=== PATIENT | male | born 1980 | race Caucasian/White ===

== ENCOUNTER 2017-08-07 21:26 | Emergency (ER) | payer BC ==
[~2017-08-07] VITALS: Ht 180.3 cm; Wt 93.9 kg
[2017-08-07] MEDS ORDERED: LIDOCAINE HCL 2% VISC SOLN 20 ML UDC PO STA (21:31)
[2017-08-07] MEDS ORDERED: ALUMINUM/MAGNESIUM SUSP 30 ML UDC PO STA (21:31)
[2017-08-07] MEDS ORDERED: SODIUM CHLORIDE 0.9% 1000ML 1,000 ML IV STA ×2 (21:40→23:36)
[2017-08-07 21:44] VITALS: Ht 180.3 cm; Wt 93.9 kg
[2017-08-07] MEDS ORDERED: OPTIRAY 320 IV PRN (21:45)
--- NOTE | 2017-08-07 21:48 | DIAGNOSTIC IMAGING REPORT ---
SINGLE VIEW CHEST CLINICAL HISTORY: Atypical chest pain. FINDINGS: An AP, portable, upright chest radiograph is obtained. No prior studies are available for comparison at the time of dictation. The cardiomediastinal silhouette is unremarkable. The lungs and pleural spaces are clear. No pneumothorax is seen. The bony thorax is grossly intact. IMPRESSION: No active disease in the chest. Electronically signed by: Magnus Ramírez M.D. 08/07/2017 9:47 PM Dictated Date/Time: 08/07/2017 9:46 PM
[2017-08-07 21:49] VITALS: O2SAT 96
[2017-08-07 22:12] LABS: BASO % 0.2 %; BASO ABS # 0.03 K/uL (0-0.2); EOS % 0.3 %; EOS ABS # 0.04 K/uL (0-0.5); HEMATOCRIT 43.9 % (42-52); HEMOGLOBIN 15.9 g/dL (14.0-18.0); IG# 0.03 K/uL (0.00-0.02); LYMPH % 19.7 %; LYMPH ABS # 2.44 K/uL (1.2-3.4); MEAN CELL VOLUME 87.5 fL (80-100); MEAN CORPUSCULAR HEMOGLOBIN 31.7 pg (25-34); MEAN CORPUSCULAR HGB CONC 36.2 g/dl (32-36); MEAN PLATELET VOLUME 11.3 fL (7.4-10.4); MONO % 7.8 %; MONO ABS # 0.97 K/uL (0.11-0.59); NEUT % 71.8 %; NEUT ABS # 8.86 K/uL (1.4-6.5); PLATELET COUNT 168 K/uL (130-400); RED CELL DISTRIBUTION WIDTH CV 12.7 % (11.5-14.5); RED CELL DISTRIBUTION WIDTH SD 40.5 fL (36.4-46.3); WHITE BLOOD COUNT 12.37 K/uL (4.8-10.8)
[2017-08-07 23:06] LABS: BLOOD UREA NITROGEN 10 mg/dl (7-18); CARBON DIOXIDE 29 mmol/L (21-32); CREATININE 1.16 mg/dl (0.60-1.40); GLUCOSE 405 mg/dl (70-99); TOTAL PROTEIN 8.1 gm/dl (6.4-8.2)
[2017-08-07 23:20] LABS: POTASSIUM 3.8 mmol/L (3.5-5.1); SODIUM 135 mmol/L (136-145)
[2017-08-07 23:26] LABS: LIPASE 337 U/L (73-393)
[2017-08-07 23:40] LABS: ALBUMIN 3.5 gm/dl (3.4-5.0); ALKALINE PHOSPHATASE 94 U/L (45-117); ALT/SGPT 20 U/L (12-78); AST/SGOT 13 U/L (15-37)
[2017-08-07] MEDS ORDERED: METRONIDAZOLE 500MG / 100ML NSS IV STA (23:50)
[2017-08-07] MEDS ORDERED: CIPROFLOXACIN 400MG / 200ML D5W IV STA (23:50)
[2017-08-08] MEDS ORDERED: METRONIDAZOLE 250 MG TAB PO STA (02:00)
[2017-08-08] MEDS ORDERED: PANTOprazole SOD 40 MG TAB PO STA (02:00)
[2017-08-08] MEDS ORDERED: CIPROFLOXACIN 500MG HOME PACK PO ONE (02:00)
--- NOTE | 2017-08-08 02:00 | EMERGENCY ROOM VISIT NOTE ---
History First contact with patient: 21:27 Chief Complaint: HYPERGLYCEMIA Stated Complaint: HYPERGLYCEMIA, SOB History of Present Illness The patient is a 37 year old male who presents to the Emergency Room with complaints of chest pain, epigastric pain, rectal pain and lightheadedness. Patient states for the past month he has had rectal pain. He states his blood sugars run high for a prolonged period time. He takes insulin. He does not routinely see a doctor. Patient states past few days he's been having chest pain and epigastric pain. Patient denies nausea, vomiting, diarrhea, fever, chills, cold symptoms, back pain, urinary symptoms. He is tolerating by mouth fluids and food. Pain currently 6-10. Nothing makes it better or worse. It is described as aching. Review of Systems See HPI for pertinent positives & negatives. A total of 10 systems reviewed and were otherwise negative. Past Medical/Surgical History Diabetes, hyperlipidemia, hypertension, ear surgery Social History Smoking Status: Current Every Day Smoker Alcohol Use: none Drug Use: none Marital Status: in relationship Housing Status: lives with family Current/Historical Medications Unable to Obtain Active Prescriptions or Reported Meds Physical Exam Vital Signs Date Time Temp Pulse Resp B/P (MAP) Pulse Ox O2 Delivery O2 Flow Rate FiO2 08/07/17 23:44 100 138/82 93 Room Air 08/07/17 22:25 109 08/07/17 21:49 96 Room Air 08/07/17 21:49 96 Room Air 08/07/17 21:44 37.0 109 15 157/103 95 Room Air Physical Exam VITALS: Vitals are noted on the nurse's note and reviewed by myself. Vital signs stable. GENERAL: White male poorly kempt, in no acute distress, nondiaphoretic, well- developed well-nourished. SKIN: The skin was without rashes, erythema, edema, or bruising. There is no tenting of the skin. Capillary reflex less than 2 seconds. HEAD: Normocephalic atraumatic. EARS: External auditory canals clear, tympanic membranes pearly crespo without erythema or effusion bilaterally. EYES: Pupils equal round and reactive to light and accommodation. Conjunctivae without injection, sclerae without icterus. Extraocular movements intact. NOSE: Patent, turbinates without inflammation or discharge. MOUTH: Mucous membranes moist. Pharynx without erythema or exudate. Uvula midline. Airway patent. Tongue does not deviate. NECK: Supple without nuchal rigidity. No lymphadenopathy. No thyromegaly. Cervical spine is nontender. No JVD. HEART: Regular rate and rhythm without murmurs gallops or rubs. LUNGS: Clear to auscultation bilaterally without wheezes, rales or rhonchi. No dullness to percussion. No retractions or accessory muscle use. ABDOMEN: Positive bowel sounds x 4. Normal tympanic percussion. Soft, tender to palpation epigastric region, without masses or organomegaly. Welsh sign negative. No guarding or rebound tenderness. No CVA tenderness Rectal exam: Rectal area erythematous edematous and indurated without fluctuance concerning for infection. no signs of FG MUSCULOSKELETAL: No muscle atrophy, erythema, or edema noted. NEURO: Patient was alert and oriented to person place and time. Normal sensation to light and sharp touch. No focal neurological deficits. Medical Decision & Procedures Laboratory Results 08/07/17 22:00 Red Blood Count 5.02, Mean Corpuscular Volume 87.5, Mean Corpuscular Hemoglobin 31.7, Mean Corpuscular Hemoglobin Concent 36.2, Mean Platelet Volume 11.3, Neutrophils (%) (Auto) 71.8, Lymphocytes (%) (Auto) 19.7, Monocytes (%) (Auto) 7.8, Eosinophils (%) (Auto) 0.3, Basophils (%) (Auto) 0.2, Neutrophils # (Auto) 8.86, Lymphocytes # (Auto) 2.44, Monocytes # (Auto) 0.97, Eosinophils # (Auto) 0.04, Basophils # (Auto) 0.03 08/07/17 22:00 Test 08/07/17 22:00 08/07/17 23:38 08/08/17 00:28 08/08/17 00:31 White Blood Count 12.37 K/uL (4.8-10.8) Red Blood Count 5.02 M/uL (4.7-6.1) Hemoglobin 15.9 g/dL (14.0-18.0) Hematocrit 43.9 % (42-52) Mean Corpuscular Volume 87.5 fL (80-100) Mean Corpuscular Hemoglobin 31.7 pg (25-34) Mean Corpuscular Hemoglobin Concent 36.2 g/dl (32-36) Platelet Count 168 K/uL (130-400) Mean Platelet Volume 11.3 fL (7.4-10.4) Neutrophils (%) (Auto) 71.8 % Lymphocytes (%) (Auto) 19.7 % Monocytes (%) (Auto) 7.8 % Eosinophils (%) (Auto) 0.3 % Basophils (%) (Auto) 0.2 % Neutrophils # (Auto) 8.86 K/uL (1.4-6.5) Lymphocytes # (Auto) 2.44 K/uL (1.2-3.4) Monocytes # (Auto) 0.97 K/uL (0.11-0.59) Eosinophils # (Auto) 0.04 K/uL (0-0.5) Basophils # (Auto) 0.03 K/uL (0-0.2) RDW Standard Deviation 40.5 fL (36.4-46.3) RDW Coefficient of Variation 12.7 % (11.5-14.5) Immature Granulocyte % (Auto) 0.2 % Immature Granulocyte # (Auto) 0.03 K/uL (0.00-0.02) Urine Color YELLOW Urine Appearance CLEAR (CLEAR) Urine pH 6.5 (4.5-7.5) Urine Specific Lucas 1.042 (1.000-1.030) Urine Protein NEG (NEG) Urine Glucose (UA) 3+ (NEG) Urine Ketones TRACE (NEG) Urine Occult Blood NEG (NEG) Urine Nitrite NEG (NEG) Urine Bilirubin NEG (NEG) Urine Urobilinogen NEG (NEG) Urine Leukocyte Esterase NEG (NEG) Anion Gap 11.0 mmol/L (3-11) Est Creatinine Clear Calc Drug Dose 100.0 ml/min Estimated GFR () 91.4 Estimated GFR (Non- 78.9 BUN/Creatinine Ratio 8.4 (10-20) Calcium Level 9.0 mg/dl (8.5-10.1) Magnesium Level 2.0 mg/dl (1.8-2.4) Total Bilirubin 0.6 mg/dl (0.2-1) Direct Bilirubin 0.1 mg/dl (0-0.2) Aspartate Amino Transf (AST/SGOT) 13 U/L (15-37) Alanine Aminotransferase (ALT/SGPT) 20 U/L (12-78) Alkaline Phosphatase 94 U/L (45-117) Total Creatine Kinase 51 U/L (39-308) Troponin I < 0.015 ng/ml (0-0.045) Total Protein 8.1 gm/dl (6.4-8.2) Albumin 3.5 gm/dl (3.4-5.0) Lipase 337 U/L (73-393) Beta-Hydroxybutyric Acid 2.43 mg/dL (0.2-2.81) Venous Blood pH 7.38 (7.36-7.41) Venous Blood Partial Pressure CO2 42 mmHg (38.0-50.0) Venous Blood Partial Pressure O2 38 mmHg Venous Blood HCO3 25 mmol/L Venous Blood Oxygen Saturation 73.0 % Venous Blood Base Excess -0.6 mEq/L Bedside Glucose 304 mg/dl (70-99) Bedside Troponin I < 0.030 ng/ml (0-0.045) Medications Administered Medications (Trade) Dose Ordered Sig/Casey Route Start Time Stop Time Status Last Admin Dose Admin Lidocaine HCl (Viscous Lidocaine 2% Soln) 10 ml NOW STAT PO 08/07/17 21:31 08/07/17 21:34 DC 08/07/17 22:13 10 ML Al Hydroxide/Mg Hydroxide (Maalox Susp) 30 ml NOW STAT PO 08/07/17 21:31 08/07/17 21:34 DC 08/07/17 22:13 30 ML Sodium Chloride 1,000 ml @ 999 mls/hr Q1H1M STAT IV 08/07/17 21:40 08/07/17 22:40 DC 08/07/17 22:13 999 MLS/HR Sodium Chloride 1,000 ml @ 999 mls/hr Q1H1M STAT IV 08/07/17 23:36 08/08/17 00:36 DC 08/07/17 23:40 999 MLS/HR Ciprofloxacin/ Dextrose (Cipro / D5W) 400 mg NOW STAT IV 08/07/17 23:50 08/07/17 23:51 DC 08/08/17 00:48 400 MG Metronidazole (Flagyl / Nss) 500 mg NOW STAT IV 08/07/17 23:50 08/07/17 23:51 DC 08/08/17 00:39 500 MG ED Course Prior records/ancillary studies reviewed and summarized above. Nursing notes reviewed. Additional history obtained from EMS. The patient's history was concerning for rectal pain, abdominal pain, chest pain , leg numbness, dizziness, high blood sugar. Differential diagnosis: Etiologies such as metabolic, infection, hypo/hyperglycemia, electrolyte abnormalities, cardiac sources, intracerebral event, toxicologic, neurologic, as well as others were entertained. Physical examination: As above. ER treatment provided: IV Lock IV fluids On reassessment the patient felt better. Diagnostics interpretation by me: ECG: Normal sinus, normal intervals, no acute ST-T wave changes. Impression sinus tachycardia interpreted by myself The labs revealed hyperglycemia without DKA. Repeat blood sugar is improved. Normal pH. No anion gap. Negative troponin 2 Imaging studies: CT ABDOMEN & PELVIS: Inflammatory changes in the right perianal/buttock region. No drainable collection. Unremarkable appendix. Fatty liver. Radiologist: Amish Salomon M.D. SINGLE VIEW CHEST CLINICAL HISTORY: Atypical chest pain. FINDINGS: An AP, portable, upright chest radiograph is obtained. No prior studies are available for comparison at the time of dictation. The cardiomediastinal silhouette is unremarkable. The lungs and pleural spaces are clear. No pneumothorax is seen. The bony thorax is grossly intact. IMPRESSION: No active disease in the chest. Electronically signed by: Magnus Ramírez M.D. CT ABDOMEN & PELVIS: Inflammatory changes in the right perianal/buttock region. No drainable collection. Unremarkable appendix. Fatty liver. Radiologist: Amish Salomon M.D. Exam and history seem consistent with hyperglycemia without DKA, chest pain less likely cardiac in etiology mostly from reflux and rectal infection. Patient felt comfortable going home. Patient had no drainable abscess on CT imaging. His chest pain resolved after the GI cocktail. He had 2 sets of negative troponins. Normal EKG. His symptoms of an ongoing for a few days now. He is afebrile and nontoxic appearing. He was advised take medications as directed, rest, monitor his blood sugars, stay well-hydrated and to follow- up family care in a day or 2 for reevaluation or here in the ER sooner for chest pain, fevers, difficulty breathing, worsening signs or symptoms or as needed. Patient states he sees the [facility] out front of the hospital. By the evaluation outlined above emergent etiologies such as cardiac sources, intracerebral event, toxologic, neurologic, as well as others were deemed relatively unlikely. The pt informed about the findings as listed above. All questions were answered and pleased with the treatment. Return instructions were outlined and the patient was discharged in stable condition. Outpatient prescription management: Protonix, Cipro, Flagyl Referral: The patient was referred back to primary care physician for follow-up in 2 to 3 days for a recheck of the current condition. case reviewed with my Attending Medical Decision as above Medication Reconcilliation Current Medication List: was personally reviewed by me Blood Pressure Screening Patient's blood pressure: Normal blood pressure Impression Primary Impression: Perianal cellulitis Additional Impressions: Precordial chest pain GERD (gastroesophageal reflux disease) Epigastric abdominal pain Hyperglycemia due to type 2 diabetes mellitus Departure Information Dispostion Home / Self-Care Condition GOOD Prescriptions Unable to Obtain Active Prescriptions or Reported Meds Patient Instructions My [facility] Additional Instructions Rectal infection: DO NOT drive, drink alcohol, operate machinery, or perform dangerous activities today. You were given medications in the ER that can affect your ability to safely function or operate a vehicle. Ciprofloxacin(Cipro) 500mg: Take one pill twice daily for 14 days for your infection. All antibiotics can cause diarrhea. If this occurs and you feel worse or it does not resolve in 1-2 days follow up with your doctor or return to the Emergency Department as this could be signs of serious underlying problems. If you experience any pain in your tendons or any tendon injury return to the ER for re-evaluation. Any medication can cause an allergic reaction, stop the pills immediately and return to the ER for rash, hives, breathing difficulties, or swelling. Metronidazole(Flagyl) 500mg: Take one pill 3 times daily for 14 days for your bowel infection. DO NOT drink alcohol or take alcohol containing products with this medication. Any medication can cause an allergic reaction, stop the pills immediately and return to the ER for rash, hives, breathing difficulties, or swelling. Ibuprofen(Motrin, Advil) may be used for fever or pain. Use 600mg every six hours as needed. Take with food. Avoid using more than 2400mg in a 24 hour period. Do not use 2400mg per day for more than three consecutive days without physician direction. Prolonged inappropriate use can lead to stomach upset or ulcers. (AND/OR) Acetaminophen(Tylenol) may be used for fever or pain. Use 1000mg every six hours as needed. Avoid using more than 3000mg in a 24 hour period. Rest and drink plenty of fluids as tolerated. Slow sips of water or sports drinks are recommended instead of large amounts all at once. Continue current medications. Once your stomach is settled start with a clear liquid diet (jello, soup broth, etc.) and then advance as tolerated. You should avoid full, heavy meals for about 24 hrs from the time your symptoms resolved. Return to the ER immediately for worsening or persistent abdominal pain, vomiting, fevers, chest pains, difficulty breathing, black or bloody stools, worsening of your condition, or as needed. Follow up with your primary physician in 2-3 days for a recheck of your current condition. Abdominal/chest pain: Protonix 40 m tablet daily for next 2 weeks. Take this on an empty stomach. Try Maalox or Zantac for breakthrough symptoms for reflux. Avoid large meals. Avoid acidic foods. Rest and drink plenty of fluids as tolerated. Continue current medications. Avoid strenuous activities and anything that worsens your pain. Resume normal activities once your symptoms resolve. Return to the ER immediately for worsening or persistent chest pain, abdominal pain, black or blood in your stools, vomiting, fevers, chest pains, difficulty breathing, worsening of your condition, or as needed. Follow up with your primary physician in 2-3 days for a recheck of your current condition. Problem Qualifiers
[2017-08-08] MEDS ORDERED: METR-163 PO (02:02)
[2017-08-08] MEDS ORDERED: CIPR-255 PO (02:02)
[2017-08-08] MEDS ORDERED: PANT40TA PO (02:02)
[2017-08-08 02:31] VITALS: BP 127/75; PULSE 102; TEMP 37; O2SAT 95
--- NOTE | 2017-08-08 07:04 | DIAGNOSTIC IMAGING REPORT ---
CT OF THE ABDOMEN AND PELVIS WITH CONTRAST CLINICAL HISTORY: Epigastric and rectal pain. Possible abscess. COMPARISON STUDY: None. TECHNIQUE: Following IV administration of 115 mL of Optiray-320, axial images of the abdomen and pelvis were obtained from the lung bases to the proximal femurs. Images were reviewed in the axial, sagittal, and coronal planes. IV contrast was administered without complication. A dose lowering technique was utilized adhering to the principles of ALARA. CT DOSE: 574.29 mGy.cm FINDINGS: Fatty infiltration of the liver is noted. The spleen, adrenal glands, kidneys and pancreas are normal. There is no biliary or pancreatic ductal dilatation. There is no hydronephrosis. Both nephrograms are symmetric. The caliber and wall thickness of small and large bowel are normal. The appendix is normal. There is no abdominal or pelvic lymphadenopathy. There is moderate infiltration within the medial right buttock which extends toward the right perianal region. There is no soft tissue gas. There is no rim-enhancing fluid collection. There is a 2.1 cm hypodense focus which suggests phlegmon within the medial right buttock. Visualized skeletal structures are unremarkable. No pneumatosis, free air or portal venous gas is present. IMPRESSION: Moderate inflammation within the medial right buttock consistent with an infectious process with cellulitis. 2.1 cm hypodense focus suggests phlegmon. No well-defined rim-enhancing fluid collection to suggest abscess at this time. Electronically signed by: Mahamed Segundo M.D. 08/08/2017 7:03 AM Dictated Date/Time: 08/08/2017 6:54 AM
== END 2017-08-08 02:32 | disposition home or self-care (01) ==
LOC: C.EDA 21:30
DX: K61.0 Anal abscess (principal); R07.2 Precordial pain; K21.9 Gastro-esophageal reflux disease without esophagitis; R10.13 Epigastric pain; E11.65 Type 2 diabetes mellitus with hyperglycemia; I10 Essential (primary) hypertension; F17.200 Nicotine dependence, unspecified, uncomplicated; Z98.890 Other specified postprocedural states

== ENCOUNTER 2021-04-25 15:54 | Observation (INO) ==
[2021-04-25] MEDS ORDERED: SODIUM CHLORIDE 0.9% 1000ML 1,000 ML IV ONE (16:20)
[2021-04-25] MEDS ORDERED: ASPIRIN CHEW 324 MG PO STA (16:20)
[2021-04-25 16:36] LABS: Basophils # (auto) 0.02 K/uL (0-0.2); Basophils % (auto) 0.3 %; Eosinophils # (auto) 0.08 K/uL (0-0.5); Eosinophils % (auto) 1.2 %; Hemoglobin 14.9 g/dL (14.0-18.0); Immature Granulocytes # (auto) 0.01 K/uL (0.00-0.02); Immature Granulocytes % (auto) 0.1 %; Lymphocytes # (auto) 1.84 K/uL (1.2-3.4); Lymphocytes % (auto) 27.4 %; Mean Corpuscular Hemoglobin 31.2 pg (25-34); Mean Corpuscular Hgb Conc 33.9 g/dL (32-36); Mean Corpuscular Volume 92.2 fL (80-100); Mean Platelet Volume 10.9 fL (7.4-10.4); Monocytes # (auto) 0.39 K/uL (0.11-0.59); Monocytes % (auto) 5.8 %; Neutrophils # (auto) 4.37 K/uL (1.4-6.5); Neutrophils % (auto) 65.2 %; Platelet Count 218 K/uL (130-400); RDW Coefficient of Variation 12.9 % (11.5-14.5); Red Blood Count 4.77 M/uL (4.7-6.1); White Blood Count 6.71 K/uL (4.8-10.8)
[2021-04-25 16:56] LABS: BUN Creatinine Ratio 8.5 (10-20); Blood Urea Nitrogen 9 mg/dl (7-18); Calcium 8.6 mg/dl (8.5-10.1); Carbon Dioxide 26 mmol/L (21-32); Chloride 107 mmol/L (98-107); Creatinine Clr Calc Pharmacy 108.7 ml/min; Est GFR (African American) 106.4 ml/min; Est GFR (Non-African American) 91.8 ml/min; Glucose 320 mg/dl (70-99); Lipase 228 U/L (73-393); Sodium 139 mmol/L (136-145)
[2021-04-25 16:59] LABS: Troponin I < 0.015 ng/ml (0-0.045)
--- NOTE | 2021-04-25 17:02 | XRay Report ---
TWO VIEW CHEST CLINICAL HISTORY: Dyspnea. Atypical chest pain. FINDINGS: PA and lateral chest radiographs are compared to study dated 04/24/2021. The cardiomediastin al silhouette is unremarkable. The lungs and pleural spaces are clear. There is no pneumothorax. The bony thorax appears intact. IMPRESSION: No active disease in the chest. ACT 112: Negative or not required by law. Electronically signed by: Magnus Ramírez M.D. 04/25/2021 5:01 PM
[2021-04-25 17:13] LABS: Partial Thromboplastin Time 26.2 Seconds (21.0-31.0); Prothrombin Time 10.4 Seconds (9.0-12.0)
[2021-04-25] MEDS ORDERED: OPTIRAY 320 125ml IV ONE (17:42)
--- NOTE | 2021-04-25 18:35 | CT Scan Report ---
CT ANGIOGRAM OF THE CHEST; CT SCAN OF THE ABDOMEN AND PELVIS WITH IV CONTRAST CLINICAL HISTORY: Atypical chest pain. Epigastric abdominal pain. Dyspnea. Back pain. COMPARISON STUDY: Chest x-ray dated 04/25/2021. Abdominal CT dated 08/07/2017. TECHNIQUE: Following the IV administration of 120 of Optiray 320, CT angiogram of the chest is perfor med from the upper abdomen to the thoracic inlet utilizing the pulmonary embolus protocol. Images are reviewed in the axial, sagittal, coronal planes. 3-D MIPS images are created and assessed. Subsequen tly, CT scan of the abdomen and pelvis was performed from the lung bases to the proximal femora. Imag es are reviewed in the axial, sagittal, and coronal planes. IV contrast was administered without comp lication. A dose lowering technique was utilized adhering to the principles of ALARA. CT DOSE: 1305.53 mGy.cm FINDINGS: CHEST: Thyroid: Imaged portions of the thyroid gland are normal in size and attenuation. Thoracic aorta: The thoracic aorta is normal in caliber and demonstrates standard 3-vessel arch anato my. No dissection is seen. Pulmonary vasculature: The pulmonary trunk is normal in caliber. There are no filling defects identif ied in the main, lobar, or segmental pulmonary arteries to indicate pulmonary embolus. Heart: The heart is normal in size and without pericardial effusion. Lungs and pleural spaces: There is no airspace consolidation or pleural effusion. Dependent atelectas is is noted at the lung bases. The trachea and central airways are clear. Mild diffuse peribronchial thickening is observed. Mediastinum: There is no mediastinal lymphadenopathy. Sophie: Clear. Axillae: There is no axillary lymphadenopathy. Bony thorax: No lytic or blastic lesions are identified. ABDOMEN AND PELVIS: Liver: The contrast-enhanced liver is normal in size, contour, and attenuation. Fatty infiltration is seen adjacent to falciform ligament. There is no intrahepatic or ductal dilatation. The hepatic vein s and portal veins are patent. Gallbladder: Unremarkable. Spleen: Normal in size and attenuation. There are calcified splenic granulomas. Pancreas: Unremarkable. Adrenal glands: Unremarkable. Kidneys: The contrast enhanced kidneys are normal in size and without hydronephrosis. The kidneys enh ance symmetrically. Abdominal vasculature: The abdominal aorta is normal in course and caliber. Bowel: There is no bowel obstruction. The appendix is well-visualized and normal. Peritoneum: There is no intraperitoneal free air or abdominal ascites. There is a small fat-containin g umbilical hernia. Lymphadenopathy: None. Pelvic viscera: The bladder, prostate, and seminal vesicles are normal as imaged. There is a small fa t-containing right inguinal hernia. Skeletal structures: No lytic or blastic lesions are seen. IMPRESSION: 1. There is no evidence of pulmonary embolus in the main, lobar, or segmental pulmonary arteries. 2. There is no airspace consolidation or pleural effusion. 3. Mild diffuse peribronchial thickening suggests bronchitis/reactive airway disease. Clinical correl ation will be required. 4. There are no acute infectious or inflammatory findings in the abdomen or pelvis. 5. Additional findings as above. ACT 112: Negative or not required by law. Electronically signed by: Magnus Ramírez M.D. 04/25/2021 6:34 PM
[2021-04-25] MEDS ORDERED: lisinopril 2.5 MG TAB PO ONE (19:20)
[2021-04-25] MEDS ORDERED: NICOTINE POLACRILEX 2 MG GUM MT PRN (20:05)
--- NOTE | 2021-04-25 20:19 | History & Physical Report ---
Date of Service April 25, 2021 Assessment & Plan (1) Chest pain: Plan: Atypical Possibly musculoskeletal given reproducibility Rule out ACS given risk factors for ischemic heart disease hypertension, slight elevated hyperlipidemia, on statin Rx DM2 insulin requiring, suboptimal control as of recent hemoglobin A1c of 10.29 December 2020 anxiety/mood disorder, at baseline medication noncompliance as per records ongoing tobacco abuse OBS PCU Aspirin for CAD prevention until ACS ruled out. Follow troponin Stress echo in a.m. if a.m. troponin within normal limits Titrate home BP meds Basal insulin adjusted for n.p.o. status after midnight, ISS BG goal 1 10-1 40, update hemoglobin A1c Update lipid panel Nicotine patch DVT prophylaxis per Lovenox subcu Full code Text document was generated using [employer] voice recognition software. It may contain grammatical or spelling errors. Kindly contact undersigned for clarification of any documentation item in question. History of Present Illness Chief Complaint: Chest pain Primary Care Provider: Jayla Pedersen DO History obtained from patient and records. Medical history significant for hypertension, hyperlipidemia, DM2 insulin requiring, anxiety/mood disorder, medication noncompliance as per records, ongoing tobacco abuse. Patient has had intermittent substernal pain since age of 16. Not related to exertion or food intake. Spontaneous resolution after a few minutes. Very sporadic, years without actual chest pain. 2 days ago, patient noted recurrence substernal pain going to both hands and feet with some shortness of breath. No actual abdominal pain. Patient evaluated at the ER. Serum lipase at 07/31/1961. Symptoms attributed to stress as per ER provider note. Patient subsequently discharged. Recurrent symptoms this afternoon, 05/09. Patient given aspirin at the ER. Patient currently comfortable. Medical History as above Surgical History : Tympanostomy tube placement Family History : Alcoholism, heart disease, DM, stroke Personal/Social history : 1 pack daily, occasional EtOH intake, former Allergies Allergy/AdvReac Type Severity Reaction Status Date / Time No Known Allergies Allergy Unverified 04/24/21 02:31 Home Medications Medication Instructions Recorded Confirmed Type aspirin 81 mg tablet,delayed 81 mg PO DAILY 04/25/21 04/25/21 History release (Aspirin Low Dose) atorvastatin 80 mg tablet 80 mg PO DAILY 04/25/21 04/25/21 History bupropion HCl 300 mg 24 hr tablet, 300 mg PO DAILY 04/25/21 04/25/21 History extended release canagliflozin 300 mg tablet 300 mg PO DAILY 04/25/21 04/25/21 History (Invokana) insulin glargine 100 unit/mL 50 unit SUBCUT DAILY 04/25/21 04/25/21 History subcutaneous solution (Lantus U-100 Insulin) lisinopril 2.5 mg tablet 2.5 mg PO DAILY 04/25/21 04/25/21 History semaglutide 1 mg/dose (2 mg/1.5 1 mg SUBCUT WK 04/25/21 04/25/21 History mL) subcutaneous pen injector (Ozempic) Past Med/Surg History Medical History (Updated 04/25/21 @ 21:44 by Jeremiah Bahena) Diabetes HLD (hyperlipidemia) HTN (hypertension) No pertinent family history Surgical History (Updated 04/24/21 @ 00:30 by Vishal Gonzalez PA-C) No significant past surgical history Social History Smoking Status: Current every day smoker Tobacco Type: Cigarettes Feels Safe at Home: Yes Review of Systems Review of Systems: As per HPI, all 10 systems reviewed, all other ROS negative Physical Exam Physical Exam: GENERAL: Comfortable, pleasant, looks older than stated age no respiratory distress SKIN: Normal color, warm HEENT: Halley palpebral conjunctivae, no ptosis, dry buccal mucosa NECK : Supple, no tenderness CHEST : CTA, left chest wall tenderness HEART : RRR, no obvious murmurs ABDOMEN: Some distention, nontender EXTREMITIES : No LE swelling/tenderness, no other conspicuous deformities noted NEUROLOGIC : Coherent, no facial asymmetry, no other gross focality Results & Data Results & Data ([facility]) Vital Signs (Past 12 Hours) Vital Signs Temp Pulse Resp BP BP Pulse Ox 04/25/21 18:30 76 24 154/79 H 97 04/25/21 18:15 81 19 155/93 H 97 04/25/21 18:00 79 26 H 98 04/25/21 17:50 79 16 99 04/25/21 17:30 98 04/25/21 17:20 98 04/25/21 17:10 98 04/25/21 17:00 133/64 98 04/25/21 16:50 97 04/25/21 16:48 97 04/25/21 16:30 139/84 04/25/21 16:21 86 133/83 97 04/25/21 16:18 83 20 133/83 98 04/25/21 16:08 37 C 88 18 141/90 H 98 Laboratory Results Laboratory Results WBC 6.71 K/uL (4.8-10.8) 04/25/21 16:24 RBC 4.77 M/uL (4.7-6.1) 04/25/21 16:24 Hgb 14.9 g/dL (14.0-18.0) 04/25/21 16:24 Hct 44.0 % (42-52) 04/25/21 16:24 MCV 92.2 fL (80-100) 04/25/21 16:24 MCH 31.2 pg (25-34) 04/25/21 16:24 MCHC 33.9 g/dL (32-36) 04/25/21 16:24 RDW Std Deviation 44.0 fL (36.4-46.3) 04/25/21 16:24 RDW Coeff of Yesica 12.9 % (11.5-14.5) 04/25/21 16:24 Plt Count 218 K/uL (130-400) 04/25/21 16:24 MPV 10.9 fL (7.4-10.4) H 04/25/21 16:24 Immature Gran % (Auto) 0.1 % 04/25/21 16:24 Neut % (Auto) 65.2 % 04/25/21 16:24 Lymph % (Auto) 27.4 % 04/25/21 16:24 [place] % (Auto) 5.8 % 04/25/21 16:24 Eos % (Auto) 1.2 % 04/25/21 16:24 Baso % (Auto) 0.3 % 04/25/21 16:24 Neut # (Auto) 4.37 K/uL (1.4-6.5) 04/25/21 16:24 Lymph # (Auto) 1.84 K/uL (1.2-3.4) 04/25/21 16:24 [place] # (Auto) 0.39 K/uL (0.11-0.59) 04/25/21 16:24 Eos # (Auto) 0.08 K/uL (0-0.5) 04/25/21 16:24 Baso # (Auto) 0.02 K/uL (0-0.2) 04/25/21 16:24 Immature Gran # (Auto) 0.01 K/uL (0.00-0.02) 04/25/21 16:24 PT 10.4 Seconds (9.0-12.0) 04/25/21 16:24 INR 1.0 (0.9-1.1) 04/25/21 16:24 APTT 26.2 Seconds (21.0-31.0) 04/25/21 16:24 PTT Ratio 1.0 04/25/21 16:24 Sodium 139 mmol/L (136-145) 04/25/21 16:24 Potassium 4.0 mmol/L (3.5-5.1) 04/25/21 16:24 Chloride 107 mmol/L (98-107) 04/25/21 16:24 Carbon Dioxide 26 mmol/L (21-32) 04/25/21 16:24 Anion Gap 6.0 (3-11) 04/25/21 16:24 BUN 9 mg/dl (7-18) 04/25/21 16:24 Creatinine 1.00 mg/dl (0.6-1.4) 04/25/21 16:24 Est Cr Clr Drug Dosing 108.7 ml/min 04/25/21 16:24 Est GFR ( Amer) 106.4 ml/min 04/25/21 16:24 Est GFR (Non-Af Amer) 91.8 ml/min 04/25/21 16:24 BUN/Creatinine Ratio 8.5 (10-20) L 04/25/21 16:24 Glucose 320 mg/dl (70-99) H* 04/25/21 16:24 Calcium 8.6 mg/dl (8.5-10.1) 04/25/21 16:24 Troponin I < 0.015 ng/ml (0-0.045) 04/25/21 16:24 Lipase 228 U/L (73-393) 04/25/21 16:24 Beta-Hydroxybutyric Acd mg/dl (0.2-2.81) 04/25/21 16:24 Specimen Hemolysis 04/25/21 16:24 COVID-19 Eval Order Covid19 at [facility] 04/25/21 19:52 Impressions Chest X-Ray 04/25/21 16:20 TWO VIEW CHEST CLINICAL HISTORY: Dyspnea. Atypical chest pain. FINDINGS: PA and lateral chest radiographs are compared to study dated 04/24/2021. The cardiomediastinal silhouette is unremarkable. The lungs and pleural spaces are clear. There is no pneumothorax. The bony thorax appears intact. IMPRESSION: No active disease in the chest. ACT 112: Negative or not required by law. Electronically signed by: Magnus Ramírez M.D. 04/25/2021 5:01 PM Abdomen/Pelvis CT 04/25/21 17:01 CT ANGIOGRAM OF THE CHEST; CT SCAN OF THE ABDOMEN AND PELVIS WITH IV CONTRAST CLINICAL HISTORY: Atypical chest pain. Epigastric abdominal pain. Dyspnea. Back pain. COMPARISON STUDY: Chest x-ray dated 04/25/2021. Abdominal CT dated 08/07/2017. TECHNIQUE: Following the IV administration of 120 of Optiray 320, CT angiogram of the chest is performed from the upper abdomen to the thoracic inlet utilizing the pulmonary embolus protocol. Images are reviewed in the axial, sagittal, coronal planes. 3-D MIPS images are created and assessed. Subsequently, CT scan of the abdomen and pelvis was performed from the lung bases to the proximal femora. Images are reviewed in the axial, sagittal, and coronal planes. IV contrast was administered without complication. A dose lowering technique was utilized adhering to the principles of ALARA. CT DOSE: 1305.53 mGy.cm FINDINGS: CHEST: Thyroid: Imaged portions of the thyroid gland are normal in size and attenuation. Thoracic aorta: The thoracic aorta is normal in caliber and demonstrates standard 3-vessel arch anatomy. No dissection is seen. Pulmonary vasculature: The pulmonary trunk is normal in caliber. There are no filling defects identified in the main, lobar, or segmental pulmonary arteries to indicate pulmonary embolus. Heart: The heart is normal in size and without pericardial effusion. Lungs and pleural spaces: There is no airspace consolidation or pleural effusion. Dependent atelectasis is noted at the lung bases. The trachea and central airways are clear. Mild diffuse peribronchial thickening is observed. Mediastinum: There is no mediastinal lymphadenopathy. Sophie: Clear. Axillae: There is no axillary lymphadenopathy. Bony thorax: No lytic or blastic lesions are identified. ABDOMEN AND PELVIS: Liver: The contrast-enhanced liver is normal in size, contour, and attenuation. Fatty infiltration is seen adjacent to falciform ligament. There is no intrahepatic or ductal dilatation. The hepatic veins and portal veins are patent. Gallbladder: Unremarkable. Spleen: Normal in size and attenuation. There are calcified splenic granulomas. Pancreas: Unremarkable. Adrenal glands: Unremarkable. Kidneys: The contrast enhanced kidneys are normal in size and without hydronephrosis. The kidneys enhance symmetrically. Abdominal vasculature: The abdominal aorta is normal in course and caliber. Bowel: There is no bowel obstruction. The appendix is well-visualized and normal. Peritoneum: There is no intraperitoneal free air or abdominal ascites. There is a small fat-containing umbilical hernia. Lymphadenopathy: None. Pelvic viscera: The bladder, prostate, and seminal vesicles are normal as imaged. There is a small fat-containing right inguinal hernia. Skeletal structures: No lytic or blastic lesions are seen. IMPRESSION: 1. There is no evidence of pulmonary embolus in the main, lobar, or segmental pulmonary arteries. 2. There is no airspace consolidation or pleural effusion. 3. Mild diffuse peribronchial thickening suggests bronchitis/reactive airway disease. Clinical correlation will be required. 4. There are no acute infectious or inflammatory findings in the abdomen or pe lvis. 5. Additional findings as above. ACT 112: Negative or not required by law. Electronically signed by: Magnus Ramírez M.D. 04/25/2021 6:34 PM Chest CTA 04/25/21 17:01 CT ANGIOGRAM OF THE CHEST; CT SCAN OF THE ABDOMEN AND PELVIS WITH IV CONTRAST CLINICAL HISTORY: Atypical chest pain. Epigastric abdominal pain. Dyspnea. Back pain. COMPARISON STUDY: Chest x-ray dated 04/25/2021. Abdominal CT dated 08/07/2017. TECHNIQUE: Following the IV administration of 120 of Optiray 320, CT angiogram of the chest is performed from the upper abdomen to the thoracic inlet utilizing the pulmonary embolus protocol. Images are reviewed in the axial, sagittal, coronal planes. 3-D MIPS images are created and assessed. Subsequently, CT scan of the abdomen and pelvis was performed from the lung bases to the proximal femora. Images are reviewed in the axial, sagittal, and coronal planes. IV contrast was administered without complication. A dose lowering technique was utilized adhering to the principles of ALARA. CT DOSE: 1305.53 mGy.cm FINDINGS: CHEST: Thyroid: Imaged portions of the thyroid gland are normal in size and attenuation. Thoracic aorta: The thoracic aorta is normal in caliber and demonstrates standard 3-vessel arch anatomy. No dissection is seen. Pulmonary vasculature: The pulmonary trunk is normal in caliber. There are no filling defects identified in the main, lobar, or segmental pulmonary arteries to indicate pulmonary embolus. Heart: The heart is normal in size and without pericardial effusion. Lungs and pleural spaces: There is no airspace consolidation or pleural effusion. Dependent atelectasis is noted at the lung bases. The trachea and central airways are clear. Mild diffuse peribronchial thickening is observed. Mediastinum: There is no mediastinal lymphadenopathy. Sophie: Clear. Axillae: There is no axillary lymphadenopathy. Bony thorax: No lytic or blastic lesions are identified. ABDOMEN AND PELVIS: Liver: The contrast-enhanced liver is normal in size, contour, and attenuation. Fatty infiltration is seen adjacent to falciform ligament. There is no intrahepatic or ductal dilatation. The hepatic veins and portal veins are patent. Gallbladder: Unremarkable. Spleen: Normal in size and attenuation. There are calcified splenic granulomas. Pancreas: Unremarkable. Adrenal glands: Unremarkable. Kidneys: The contrast enhanced kidneys are normal in size and without hydronephrosis. The kidneys enhance symmetrically. Abdominal vasculature: The abdominal aorta is normal in course and caliber. Bowel: There is no bowel obstruction. The appendix is well-visualized and normal. Peritoneum: There is no intraperitoneal free air or abdominal ascites. There is a small fat-containing umbilical hernia. Lymphadenopathy: None. Pelvic viscera: The bladder, prostate, and seminal vesicles are normal as imaged. There is a small fat-containing right inguinal hernia. Skeletal structures: No lytic or blastic lesions are seen. IMPRESSION: 1. There is no evidence of pulmonary embolus in the main, lobar, or segmental pulmonary arteries. 2. There is no airspace consolidation or pleural effusion. 3. Mild diffuse peribronchial thickening suggests bronchitis/reactive airway disease. Clinical correlation will be required. 4. There are no acute infectious or inflammatory findings in the abdomen or pelvis. 5. Additional findings as above. ACT 112: Negative or not required by law. Electronically signed by: Magnus Ramírez M.D. 04/25/2021 6:34 PM Diagnostic Findings EKG as per my interpretation: Rate 85, NSR, normal axis, T wave flattening inferior and septal leads (1) Chest pain Chest pain type: unspecified Qualified Code(s): R07.9 - Chest pain, unspecified
[2021-04-25] MEDS ORDERED: LANTUS PER UNIT CHARGE SQ STA (20:22)
[2021-04-25] MEDS ORDERED: NICOTINE 21 MG/24 HR TDSY TD STA (20:23)
[2021-04-25 21:04] LABS: Magnesium 2.3 mg/dl (1.8-2.4); Troponin I < 0.015 ng/ml (0-0.045)
--- NOTE | 2021-04-25 21:35 | Emergency Department Note ---
History of Present Illness General Chief Complaint: Chest Pain Stated Complaint: CHEST TIGHTNESS Time Seen by Provider: 04/25/21 16:12 History of Present Illness Provider Complaint: chest pain Onset (ago): day(s) 3 Duration: intermittent Onset: during rest Pain Location: substernal and epigastric Pain Radiation: RUE and LUE Severity: moderate Maximum Pain Intensity: 10 Current Pain Intensity: 8 Quality: + aching Relieved By: + nothing Exacerbated By: + nothing Context: no recent illness, no recent surgery, no recent immobilization, no recent travel, no trauma/injury, no new medications or no history of DVT/PE Associated symptoms: + dyspnea and + cough; no nausea, no vomiting, no d iaphoresis, no sense of impending doom, no syncope, no palpitations, no fever or no leg swelling Patient states he was seen in the emergency department 2 days ago and told his lipase level was high. Patient reports he is vaccinated against COVID-19. Home Medications Medication Instructions Recorded Confirmed Type aspirin 81 mg tablet,delayed 81 mg PO DAILY 04/25/21 04/25/21 History release (Aspirin Low Dose) atorvastatin 80 mg tablet 80 mg PO DAILY 04/25/21 04/25/21 History bupropion HCl 300 mg 24 hr tablet, 300 mg PO DAILY 04/25/21 04/25/21 History extended release canagliflozin 300 mg tablet 300 mg PO DAILY 04/25/21 04/25/21 History (Invokana) insulin glargine 100 unit/mL 50 unit SUBCUT DAILY 04/25/21 04/25/21 History subcutaneous solution (Lantus U-100 Insulin) lisinopril 2.5 mg tablet 2.5 mg PO DAILY 04/25/21 04/25/21 History semaglutide 1 mg/dose (2 mg/1.5 1 mg SUBCUT WK 04/25/21 04/25/21 History mL) subcutaneous pen injector (Ozempic) Allergies Allergy/AdvReac Type Severity Reaction Status Date / Time No Known Allergies Allergy Unverified 04/24/21 02:31 Past Med/Surg History Medical History (Updated 04/25/21 @ 21:44 by Jeremiah Bahena) Diabetes HLD (hyperlipidemia) HTN (hypertension) No pertinent family history Surgical History (Updated 04/24/21 @ 00:30 by Vishal Gonzalez PA-C) No significant past surgical history Social History Smoking Status: Current every day smoker Tobacco Type: Cigarettes Feels Safe at Home: Yes Physical Exam Vital Signs Vital Signs - 24 hr 04/25/21 16:08 04/25/21 16:18 04/25/21 16:21 Temperature 37 C Temperature Source Oral Pulse Rate 88 83 86 Pulse Rate from SpO2 Sensor 87 Respiratory Rate 18 20 Respiratory Effort / Characteristics Non-Labored Respiratory Depth Normal Normal Blood Pressure 141/90 H 133/83 Blood Pressure [Right Arm] 133/83 Blood Pressure Mean 107 99 Blood Pressure Mean [Right Arm] 99 Blood Pressure Position Sitting Pulse Oximetry 98 98 97 Oxygen Delivery Method Room Air Room Air Room Air Sepsis Recent Fever Within 48 Hours No Sepsis New/Unexplained Change in Mental Status N/A Sepsis Action Taken by Nursing No Action Required 04/25/21 16:30 04/25/21 16:48 04/25/21 16:50 Temperature Temperature Source Pulse Rate Pulse Rate from SpO2 Sensor 89 84 Respiratory Rate Respiratory Effort / Characteristics Respiratory Depth Blood Pressure 139/84 Blood Pressure [Right Arm] Blood Pressure Mean 102 Blood Pressure Mean [Right Arm] Blood Pressure Position Pulse Oximetry 97 97 Oxygen Delivery Method Room Air Room Air Room Air Sepsis Recent Fever Within 48 Hours Sepsis New/Unexplained Change in Mental Status Sepsis Action Taken by Nursing 04/25/21 17:00 04/25/21 17:10 04/25/21 17:20 Temperature Temperature Source Pulse Rate Pulse Rate from SpO2 Sensor 88 84 91 H Respiratory Rate Respiratory Effort / Characteristics Respiratory Depth Blood Pressure 133/64 Blood Pressure [Right Arm] Blood Pressure Mean 87 Blood Pressure Mean [Right Arm] Blood Pressure Position Pulse Oximetry 98 98 98 Oxygen Delivery Method Room Air Room Air Room Air Sepsis Recent Fever Within 48 Hours Sepsis New/Unexplained Change in Mental Status Sepsis Action Taken by Nursing 04/25/21 17:30 04/25/21 17:50 04/25/21 18:00 Temperature Temperature Source Pulse Rate 79 79 Pulse Rate from SpO2 Sensor 81 79 79 Respiratory Rate 16 26 H Respiratory Effort / Characteristics Respiratory Depth Blood Pressure Blood Pressure [Right Arm] Blood Pressure Mean Blood Pressure Mean [Right Arm] Blood Pressure Position Pulse Oximetry 98 99 98 Oxygen Delivery Method Room Air Room Air Room Air Sepsis Recent Fever Within 48 Hours Sepsis New/Unexplained Change in Mental Status Sepsis Action Taken by Nursing 04/25/21 18:15 04/25/21 18:30 Temperature Temperature Source Pulse Rate 81 76 Pulse Rate from SpO2 Sensor 81 76 Respiratory Rate 19 24 Respiratory Effort / Characteristics Respiratory Depth Blood Pressure 155/93 H 154/79 H Blood Pressure [Right Arm] Blood Pressure Mean 113 104 Blood Pressure Mean [Right Arm] Blood Pressure Position Pulse Oximetry 97 97 Oxygen Delivery Method Room Air Room Air Sepsis Recent Fever Within 48 Hours Sepsis New/Unexplained Change in Mental Status Sepsis Action Taken by Nursing Physical Exam GENERAL: He is oriented to person, place, and time. He appears well-developed and well-nourished. He does not appear distressed. HENT: Exam performed. - Head: Normocephalic and atraumatic. - Right Ear: External ear normal. No mastoid tenderness. - Left Ear: External ear normal. No mastoid tenderness. - Mouth/Throat: The oropharynx is clear and moist. No trismus in the jaw. No dental abscesses or uvula swelling. No oropharyngeal exudate or tonsillar abscesses. EYES: Conjunctivae and EOM are normal. Pupils are equal, round, and reactive to light. Right eye exhibits no discharge. Left eye exhibits no discharge. No scleral icterus. NECK: Normal range of motion. Neck supple. No JVD present. No spinous process tenderness present. No carotid bruit present. No rigidity. No tracheal deviation and normal range of motion present. No Brudzinski's sign and no Kernig's sign noted. CV: Normal rate, regular rhythm, normal heart sounds and intact distal pulses. There is no peripheral edema. Palpable radial pulses bue. PULM/CHEST: Effort normal and breath sounds normal. No respiratory distress. No stridor. He has no wheezes. He has no rales. - Chest Wall: He exhibits no tenderness. ABD: The abdomen is soft. Diffuse pain on palpation of the abdomen. MUSC/SKEL: Normal range of motion. There is no peripheral edema, tenderness or deformity. LYMPH: No cervical adenopathy. NEURO: He is alert and oriented to person, place, and time. He has normal strength. No cranial nerve deficit or sensory deficit. Coordination and gait normal. GCS eye subscore is 4. GCS verbal subscore is 5. GCS motor subscore is 6. Cerebellar tests wnl. SKIN: Skin is warm and dry. He is not diaphoretic. PSYCH: He has a normal mood and affect. Behavior is normal. Judgment and thought content normal. Course Course 1612: The patient was evaluated in room C9. A complete history and physical exam was performed Cardiac monitoring: An order was placed for continuous cardiac monitoring. The monitor shows a rate of 80 with sinus rhythm EMR reviewed. Patient was seen in the emergency department 2 days ago. At that time he had a lipase of 1160. Patient according to the documentation at that time had no abdominal pain the patient was discharged. 193: Vital signs stable. Labs and imaging within normal limits. Patient has a moderate heart score. Patient will be admitted to the [facility]ist team for chest pain rule out ACS Dr. Amato notified. Administered Medications Discontinued Medications Aspirin (Aspirin Chew 324 Mg) 324 mg PO NOW STA Stop: 04/25/21 16:21 Last Admin: 04/25/21 16:26 Dose: 324 mg Documented by: [id number] Sodium Chloride (Nss 1000ml) 1,000 mls @ 999 mls/hr IV .Q1H1M ONE Stop: 04/25/21 17:20 Last Infusion: 04/25/21 17:27 Dose: 0 mls/hr Documented by: [id number] Admin: 04/25/21 16:26 Dose: 999 mls/hr Documented by: [id number] Insulin Glargine (Lantus Per Unit Charge) 20 units SQ NOW STA Stop: 04/25/21 20:23 Last Admin: 04/25/21 20:39 Dose: 20 units Documented by: [id number] Cosigned by: [id number] Ioversol (Optiray 320 125ml) 120 ml IV ONCE ONE Stop: 04/25/21 17:43 Last Admin: 04/25/21 17:42 Dose: 120 ml Documented by: [id number] Lisinopril (Lisinopril 2.5 Mg Tab) 2.5 mg PO ONE ONE Stop: 04/25/21 19:21 Last Admin: 04/25/21 20:40 Dose: 2.5 mg Documented by: [id number] Nicotine (Nicotine 21 Mg/24 Hr Tdsy) 21 mg TD NOW STA Stop: 04/25/21 20:24 Last Admin: 04/25/21 20:40 Dose: 21 mg Documented by: [id number] Medical Decision Making Laboratory Data Result diagrams: 04/25/21 16:24 04/25/21 16:24 Labs: Lab Results 04/25/21 04/25/21 04/25/21 Range/Units 16:24 16:24 16:24 WBC 6.71 (4.8-10.8) K/uL RBC 4.77 (4.7-6.1) M/uL Hgb 14.9 (14.0-18.0) g/dL Hct 44.0 (42-52) % MCV 92.2 (80-100) fL MCH 31.2 (25-34) pg MCHC 33.9 (32-36) g/dL RDW Std Deviation 44.0 (36.4-46.3) fL RDW Coeff of Yesica 12.9 (11.5-14.5) % Plt Count 218 (130-400) K/uL MPV 10.9 H (7.4-10.4) fL Immature Gran % (Auto) 0.1 % Neut % (Auto) 65.2 % Lymph % (Auto) 27.4 % Barnwell % (Auto) 5.8 % Eos % (Auto) 1.2 % Baso % (Auto) 0.3 % Neut # (Auto) 4.37 (1.4-6.5) K/uL Lymph # (Auto) 1.84 (1.2-3.4) K/uL Barnwell # (Auto) 0.39 (0.11-0.59) K/uL Eos # (Auto) 0.08 (0-0.5) K/uL Baso # (Auto) 0.02 (0-0.2) K/uL Immature Gran # (Auto) 0.01 (0.00-0.02) K/uL PT 10.4 (9.0-12.0) Seconds INR 1.0 (0.9-1.1) APTT 26.2 (21.0-31.0) Seconds PTT Ratio 1.0 Sodium 139 (136-145) mmol/L Potassium 4.0 (3.5-5.1) mmol/L Chloride 107 (98-107) mmol/L Carbon Dioxide 26 (21-32) mmol/L Anion Gap 6.0 (3-11) BUN 9 (7-18) mg/dl Creatinine 1.00 (0.6-1.4) mg/dl Est Cr Clr Drug Dosing 108.7 ml/min Est GFR ( Amer) 106.4 ml/min Est GFR (Non-Af Amer) 91.8 ml/min BUN/Creatinine Ratio 8.5 L (10-20) Glucose 320 H* (70-99) mg/dl Calcium 8.6 (8.5-10.1) mg/dl Magnesium (1.8-2.4) mg/dl Troponin I < 0.015 (0-0.045) ng/ml Lipase 228 (73-393) U/L Beta-Hydroxybutyric Acd (0.2-2.81) mg/dl Specimen Hemolysis COVID-19 Eval Order SARS-CoV-2 (PCR) (Negative) 04/25/21 04/25/21 04/25/21 Range/Units 19:52 19:52 20:24 WBC (4.8-10.8) K/uL RBC (4.7-6.1) M/uL Hgb (14.0-18.0) g/dL Hct (42-52) % MCV (80-100) fL MCH (25-34) pg MCHC (32-36) g/dL RDW Std Deviation (36.4-46.3) fL RDW Coeff of Yesica (11.5-14.5) % Plt Count (130-400) K/uL MPV (7.4-10.4) fL Immature Gran % (Auto) % Neut % (Auto) % Lymph % (Auto) % Barnwell % (Auto) % Eos % (Auto) % Baso % (Auto) % Neut # (Auto) (1.4-6.5) K/uL Lymph # (Auto) (1.2-3.4) K/uL Barnwell # (Auto) (0.11-0.59) K/uL Eos # (Auto) (0-0.5) K/uL Baso # (Auto) (0-0.2) K/uL Immature Gran # (Auto) (0.00-0.02) K/uL PT (9.0-12.0) Seconds INR (0.9-1.1) APTT (21.0-31.0) Seconds PTT Ratio Sodium (136-145) mmol/L Potassium (3.5-5.1) mmol/L Chloride (98-107) mmol/L Carbon Dioxide (21-32) mmol/L Anion Gap (3-11) BUN (7-18) mg/dl Creatinine (0.6-1.4) mg/dl Est Cr Clr Drug Dosing ml/min Est GFR ( Amer) ml/min Est GFR (Non-Af Amer) ml/min BUN/Creatinine Ratio (10-20) Glucose (70-99) mg/dl Calcium (8.5-10.1) mg/dl Magnesium 2.3 (1.8-2.4) mg/dl Troponin I < 0.015 (0-0.045) ng/ml Lipase (73-393) U/L Beta-Hydroxybutyric Acd (0.2-2.81) mg/dl Specimen Hemolysis COVID-19 Eval Order Covid19 at [facility] SARS-CoV-2 (PCR) NEGATIVE (Negative) Imaging Data Chest x-ray: Radiologist's impression: TWO VIEW CHEST CLINICAL HISTORY: Dyspnea. Atypical chest pain. FINDINGS: PA and lateral chest radiographs are compared to study dated 04/24/20. The cardiomediastinal silhouette is unremarkable. The lungs and pleural spaces are clear. There is no pneumothorax. The bony thorax appears intact. IMPRESSION: No active disease in the chest. ACT 112: Negative or not required by law. Electronically signed by: Magnus Ramírez M.D. 04/25/2021 5:01 PM Dictated: 04/25/211699Transcribed: 04/25/211699 CT scan - chest: Radiologist's impression: CT ANGIOGRAM OF THE CHEST; CT SCAN OF THE ABDOMEN AND PELVIS WITH IV CONTRAST CLINICAL HISTORY: Atypical chest pain. Epigastric abdominal pain. Dyspnea. Back pain. COMPARISON STUDY: Chest x-ray dated 04/25/2021. Abdominal CT dated 08/07/2017. TECHNIQUE: Following the IV administration of 120 of Optiray 320, CT angiogram of the chest is performed from the upper abdomen to the thoracic inlet utilizing the pulmonary embolus protocol. Images are reviewed in the axial, sagittal, coronal planes. 3-D MIPS images are created and assessed. Subsequently, CT scan of the abdomen and pelvis was performed from the lung bases to the proximal femora. Images are reviewed in the axial, sagittal, and coronal planes. IV contrast was administered without complication. A dose lowering technique was utilized adhering to the principles of ALARA. CT DOSE: 1305.53 mGy.cm FINDINGS: CHEST: Thyroid: Imaged portions of the thyroid gland are normal in size and attenuation. Thoracic aorta: The thoracic aorta is normal in caliber and demonstrates standard 3-vessel arch anatomy. No dissection is seen. Pulmonary vasculature: The pulmonary trunk is normal in caliber. There are no filling defects identified in the main, lobar, or segmental pulmonary arteries to indicate pulmonary embolus. Heart: The heart is normal in size and without pericardial effusion. Lungs and pleural spaces: There is no airspace consolidation or pleural effu windy. Dependent atelectasis is noted at the lung bases. The trachea and central airways are clear. Mild diffuse peribronchial thickening is observed. Mediastinum: There is no mediastinal lymphadenopathy. Sophie: Clear. Axillae: There is no axillary lymphadenopathy. Bony thorax: No lytic or blastic lesions are identified. ABDOMEN AND PELVIS: Liver: The contrast-enhanced liver is normal in size, contour, and attenuation. Fatty infiltration is seen adjacent to falciform ligament. There is no i ntrahepatic or ductal dilatation. The hepatic veins and portal veins are patent. Gallbladder: Unremarkable. Spleen: Normal in size and attenuation. There are calcified splenic granulomas. Pancreas: Unremarkable. Adrenal glands: Unremarkable. Kidneys: The contrast enhanced kidneys are normal in size and without hydronephrosis. The kidneys enhance symmetrically. Abdominal vasculature: The abdominal aorta is normal in course and caliber. Bowel: There is no bowel obstruction. The appendix is well-visualized and normal. Peritoneum: There is no intraperitoneal free air or abdominal ascites. There is a small fat-containing umbilical hernia. Lymphadenopathy: None. Pelvic viscera: The bladder, prostate, and seminal vesicles are normal as imaged. There is a small fat-containing right inguinal hernia. Skeletal structures: No lytic or blastic lesions are seen. IMPRESSION: 1. There is no evidence of pulmonary embolus in the main, lobar, or segmental pulmonary arteries. 2. There is no airspace consolidation or pleural effusion. 3. Mild diffuse peribronchial thickening suggests bronchitis/reactive airway disease. Clinical correlation will be required. 4. There are no acute infectious or inflammatory findings in the abdomen or pelvis. 5. Additional findings as above. ACT 112: Negative or not required by law. Electronically signed by: Magnus Ramírez M.D. 04/25/2021 6:34 PM Dictated: 04/25/211819Transcribed: 04/25/211819 ECG Data Indication: chest pain Rate (beats per minute): 84 Rhythm: normal sinus Findings: no ST depression, no ST elevation or no prolonged QT MDM Narrative Vital signs stable. Labs and imaging within normal limits. Patient has a moderate heart score. Patient will be admitted to the [facility] hospitalist team for chest pain rule out ACS Dr. Amato notified. Impression & Plan Chest pain Discharge Plan Visit Data Chief Complaint: Chest Pain Stated Complaint: CHEST TIGHTNESS Discharge Problem: Chest pain Patient Disposition: Being Evaluated by Hospitalist Forms Stand Alone Forms: [facility] Prescriptions Prescriptions: No Action atorvastatin 80 mg tablet 80 mg PO DAILY RF: 0 lisinopril 2.5 mg tablet 2.5 mg PO DAILY RF: 0 bupropion HCl 300 mg tablet extended release 24 hr 300 mg PO DAILY RF: 0 Invokana 300 mg tablet 300 mg PO DAILY RF: 0 Ozempic 1 mg/dose (2 mg/1.5 mL) pen injector 1 mg SUBCUT WK RF: 0 aspirin [Aspirin Low Dose] 81 mg Tablet,Delayed Release (Dr/Ec) 81 mg PO DAILY RF: 0 Lantus U-100 Insulin 100 unit/mL Solution 50 unit SUBCUT DAILY RF: 0 Referrals Referrals: Jayla Pedersen DO [Primary Care Provider] -
[2021-04-25] MEDS ORDERED: GLUCOSE 10 TABS/TUBE PO PRN (22:14)
[2021-04-25] MEDS ORDERED: GLUCOSE 40% GEL 15 GM TUBE PO PRN (22:14)
[2021-04-25] MEDS ORDERED: CARBOHYDRATES FOR HYPOGLYCEMIA PO PRN (22:14)
[2021-04-25] MEDS ORDERED: GLUCAGON FOR INJ 1 MG VIAL SQ PRN (22:14)
[2021-04-25] MEDS ORDERED: LORazepam 0.5 MG/1 ML VIAL IV PRN (22:14)
[2021-04-25] MEDS ORDERED: DEXTROSE 50% 50 ML SYRINGE IV PRN (22:14)
[2021-04-25] MEDS ORDERED: PROMETHAZINE HCL 12.5 MG in SODIUM CHLORIDE 0.9% 50 ML IV PRN (22:14)
[2021-04-25] MEDS: oxyCODONE HCL IR 5 MG TAB (IMMEDIATE RELEASE) PO PRN (23:17)
[2021-04-25] MEDS: INSULIN ASPART 100 UNITS/ML 3 ML PEN SC SCH (23:18)
[2021-04-25 23:21] LABS: Lyme Ab IgG w/WB Rflx Negative (Negative); Lyme Ab IgM w/WB Rflx Negative (Negative)
[2021-04-26] MEDS ORDERED: SODIUM CHLORIDE 0.9% 1000ML 1,000 ML IV SCH
[2021-04-26] MEDS: MoRPHine SULFATE 4 MG/ML 1 ML CARP\\VIAL IV PRN ×4 (03:02→22:26)
[2021-04-26 05:50] LABS: Basophils # (auto) 0.03 K/uL (0-0.2); Basophils % (auto) 0.5 %; Eosinophils # (auto) 0.15 K/uL (0-0.5); Eosinophils % (auto) 2.3 %; Hematocrit (blood only) 39.3 % (42-52); Hemoglobin 13.1 g/dL (14.0-18.0); Lymphocytes # (auto) 2.43 K/uL (1.2-3.4); Mean Corpuscular Hemoglobin 30.1 pg (25-34); Mean Corpuscular Hgb Conc 33.3 g/dL (32-36); Mean Corpuscular Volume 90.3 fL (80-100); Mean Platelet Volume 10.4 fL (7.4-10.4); Monocytes # (auto) 0.51 K/uL (0.11-0.59); Neutrophils # (auto) 3.27 K/uL (1.4-6.5); Neutrophils % (auto) 51.2 %; Platelet Count 177 K/uL (130-400); RDW Coefficient of Variation 13.1 % (11.5-14.5); RDW Standard Deviation 43.1 fL (36.4-46.3); Red Blood Count 4.35 M/uL (4.7-6.1); White Blood Count 6.39 K/uL (4.8-10.8)
[2021-04-26 06:03] LABS: Partial Thromboplastin Time 26.7 Seconds (21.0-31.0)
[2021-04-26] MEDS: INSULIN ASPART 100 UNITS/ML 3 ML PEN SC SCH ×4 (06:17→20:20)
[2021-04-26 06:35] LABS: BUN Creatinine Ratio 9.5 (10-20); Creatinine Clr Calc Pharmacy 135.7 ml/min; Est GFR (African American) 126.8 ml/min; Est GFR (Non-African American) 109.4 ml/min; Potassium 3.3 mmol/L (3.5-5.1)
[2021-04-26] MEDS: ACETAMINOPHEN 325 MG TAB PO PRN ×2 (07:34→13:45)
[2021-04-26] MEDS: oxyCODONE HCL IR 5 MG TAB (IMMEDIATE RELEASE) PO PRN ×3 (07:59→20:20)
[2021-04-26 08:08] LABS: Estimated Average Glucose 263 mg/dl; Hemoglobin A1C 10.8 % (4.5-5.6)
[2021-04-26] MEDS: NICOTINE 21 MG/24 HR TDSY TD SCH (08:53)
[2021-04-26] MEDS: lisinopril 5 MG TAB PO SCH (08:53)
[2021-04-26] MEDS: buPROPion XL 300 MG TABCR PO SCH (08:53)
[2021-04-26] MEDS: ASPIRIN 81 MG ECTAB PO SCH (08:53)
[2021-04-26] MEDS: ATORVASTATIN 40 MG TAB PO SCH (08:53)
[2021-04-26] MEDS: ENOXAPARIN INJ 40 MG/0.4 ML SYR SQ SCH (08:54)
[2021-04-26] MEDS ORDERED: INSULIN GLARGINE SOLOSTAR 100 UNITS/ML 3 ML PEN SC SCH ×3 (09:00→21:00)
[2021-04-26] MEDS ORDERED: ASPIRIN 81 MG ECTAB PO SCH (09:00)
[2021-04-26] MEDS ORDERED: POTASSIUM CHLORIDE CRTAB 20 MEQ TABCR PO STA (09:27)
[2021-04-26] MEDS ORDERED: Nursing to Pharmacy Communication SCH (12:15)
--- NOTE | 2021-04-26 15:46 | Electrocardiogram Report ---
Test Reason : Blood Pressure : / mmHG Vent. Rate : 084 BPM Atrial Rate : 084 BPM P-R Int : 136 ms QRS Dur : 088 ms QT Int : 356 ms P-R-T Axes : 051 -02 041 degrees QTc Int : 420 ms Normal sinus rhythm Normal ECG When compared with ECG of 23-APR-2021 23:35, No significant change was found Confirmed by Sanya Barros ([id number]) on 04/26/2021 3:45:47 PM Referred By: Confirmed By:Sanya Barros
--- NOTE | 2021-04-26 16:50 | Hospitalist Progress Note ---
Date of Service April 26, 2021 Assessment & Plan (1) Chest pain: Plan: Atypical; ACS ruled out Possibly musculoskeletal given reproducibility Rule out ACS given risk factors for ischemic heart disease hypertension, slight elevated hyperlipidemia, on statin Rx DM2 insulin requiring, suboptimal control as of recent hemoglobin A1c of 10.29 December 2020 anxiety/mood disorder, at baseline medication noncompliance as per records ongoing tobacco abuse Appreciate cardioloyg input. Stress test is negative. Grady MSK componenst. Patient refused to go home today and reported that he will come back if discharged. CTA negative. Chest exam was bening. Continue with increased lisinopril 10 mg daily. Continue with insulin. Update lipid panel Nicotine patch DVT prophylaxis per Lovenox subcu Full code Text document was generated using [employer] voice recognition software. It may contain grammatical or spelling errors. Kindly contact undersigned for clarification of any documentation item in question. Admission and Anticipated Discharge Date Admission Date: April 25, 2021 Subjective Paitent was seen post-stress test. Reports he contineus to have chest pain that is 10/10. Reports he feels as if someone is sitting on his chest. Denies any SOB but does have minimal non-productive cough. Denies worening of chest pain with movement or with breathing. Denies any recent trauma. Denies any palpiations or dizziness. Review of Systems Review of Systems: All systems reviewed & are unremarkable except as noted in HPI & below Physical Exam Physical Exam: General: A&Ox3 HENT: NCAT, MMM, EOMI Eyes: PERRLA Neck: Supple, normal range of motion CVS: normal rate and rhythm Resp: b/l decrease breath sounds Abdomen: Soft, ND/NT Extremities: No c/c/e Neuro: face symmetric, no focal deficit apprecaited Skin: warm and dry, no rashes/lesions/errythema MSK: normal ROM, no joint swelling/erythema Results & Data Results & Data ([facility]) Vital Signs (Past 12 Hours) Vital Signs Temp Pulse Pulse Resp BP BP Pulse Ox 04/26/21 15:54 36.6 C 77 18 125/74 97 04/26/21 13:14 36.5 C 73 17 113/65 136/81 97 04/26/21 08:00 71 04/26/21 07:37 36.5 C 73 17 136/81 97 (1) Chest pain Chest pain type: unspecified Qualified Code(s): R07.9 - Chest pain, unspecified
[2021-04-27] MEDS: oxyCODONE HCL IR 5 MG TAB (IMMEDIATE RELEASE) PO PRN ×2 (05:50→11:05)
--- NOTE | 2021-04-27 06:25 | Electrocardiogram Report ---
Test Reason : Blood Pressure : / mmHG Vent. Rate : 074 BPM Atrial Rate : 074 BPM P-R Int : 148 ms QRS Dur : 098 ms QT Int : 390 ms P-R-T Axes : 063 009 -02 degrees QTc Int : 432 ms Normal sinus rhythm Normal ECG When compared with ECG of 25-APR-2021 16:18, No significant change was found Confirmed by Sanya Barros ([id number]) on 04/27/2021 6:25:03 AM Referred By: REFERRED SELF Confirmed By:Sanya Barros
[2021-04-27] MEDS: INSULIN ASPART 100 UNITS/ML 3 ML PEN SC SCH ×2 (08:31→11:47)
[2021-04-27] MEDS: ASPIRIN 81 MG ECTAB PO SCH (08:32)
[2021-04-27] MEDS: buPROPion XL 300 MG TABCR PO SCH (08:33)
[2021-04-27] MEDS: ATORVASTATIN 40 MG TAB PO SCH (08:33)
[2021-04-27] MEDS: lisinopril 5 MG TAB PO SCH (08:33)
[2021-04-27] MEDS: ENOXAPARIN INJ 40 MG/0.4 ML SYR SQ SCH (08:33)
[2021-04-27] MEDS: NICOTINE 21 MG/24 HR TDSY TD SCH (08:35)
[2021-04-27] MEDS ORDERED: INSULIN GLARGINE SOLOSTAR 100 UNITS/ML 3 ML PEN SC SCH (09:00)
[2021-04-27 12:00] LABS: Basophils # (auto) 0.02 K/uL (0-0.2); Basophils % (auto) 0.3 %; Eosinophils % (auto) 1.5 %; Hematocrit (blood only) 42.5 % (42-52); Hemoglobin 13.9 g/dL (14.0-18.0); Immature Granulocytes # (auto) 0.01 K/uL (0.00-0.02); Immature Granulocytes % (auto) 0.2 %; Lymphocytes # (auto) 1.92 K/uL (1.2-3.4); Lymphocytes % (auto) 29.3 %; Mean Corpuscular Hemoglobin 30.8 pg (25-34); Mean Corpuscular Volume 94.2 fL (80-100); Monocytes # (auto) 0.49 K/uL (0.11-0.59); Monocytes % (auto) 7.5 %; Neutrophils # (auto) 4.02 K/uL (1.4-6.5); Neutrophils % (auto) 61.2 %; Platelet Count 209 K/uL (130-400); RDW Coefficient of Variation 13.1 % (11.5-14.5); RDW Standard Deviation 45.2 fL (36.4-46.3); Red Blood Count 4.51 M/uL (4.7-6.1); White Blood Count 6.56 K/uL (4.8-10.8)
[2021-04-27 12:22] LABS: Alanine Aminotransferase 18 U/L (12-78); Aspartate Aminotransferase 15 U/L (15-37); BUN Creatinine Ratio 8.4 (10-20); Blood Urea Nitrogen 8 mg/dl (7-18); Calcium 8.4 mg/dl (8.5-10.1); Carbon Dioxide 30 mmol/L (21-32); Chloride 107 mmol/L (98-107); Creatinine Clr Calc Pharmacy 117.1 ml/min; Est GFR (African American) 117.6 ml/min; Est GFR (Non-African American) 101.5 ml/min; Glucose 180 mg/dl (70-99); Potassium 3.5 mmol/L (3.5-5.1); Sodium 141 mmol/L (136-145)
[2021-04-27 12:26] LABS: Albumin Globulin Ratio 0.9 (0.9-2); Alkaline Phosphatase 66 U/L (45-117); Bilirubin,Total 0.3 mg/dl (0.2-1); Globulin 3.5 gm/dl (2.5-4.0); Total Protein 6.5 gm/dl (6.4-8.2); Troponin I < 0.015 ng/ml (0-0.045)
[2021-04-27 12:33] LABS: Mean Corpuscular Hgb Conc 32.7 g/dL (32-36)
[2021-04-27] MEDS ORDERED: OPTIRAY 320 100ml IV ONE (13:39)
--- NOTE | 2021-04-27 13:53 | CT Scan Report ---
CT abd pelvis IV con only CLINICAL INDICATION: MN ^1:45 ^left sided abdominal/chest pain. TECHNIQUE: Helical axial images of the abdomen and pelvis were obtained and displayed at 5 and 1 mm i ntervals. Automated dose lowering techniques and/or adjustment according to patient size were utilize d for this exam. This exam was performed with intravenous contrast. COMPARISON: Comparison is made to CT abdomen and pelvis 04/25/2021 FINDINGS: Lower chest: Bibasilar atelectasis is seen. Liver: Unremarkable. No focal lesions are seen. Gallbladder and biliary tree: No calcified gallstones. Normal caliber wall. No intra- or extrahepatic biliary ductal dilation. Pancreas: Unremarkable, no focal lesions. Spleen: Calcifications are noted in the spleen compatible with prior granulomatous disease. Adrenals: Unremarkable. Kidneys and ureters: Unremarkable. Bladder: Limited evaluation due to underdistention. Reproductive organs: Prostatic calcifications are seen which may represent prior hemorrhage or granul omatous disease. Bowel: Diverticulosis is seen without evidence of diverticulitis. The appendix is unremarkable. Lymph nodes Retroperitoneal: Unremarkable. Mesenteric: Unremarkable. Pelvic: Unremarkable. Peritoneum: Normal Vessels: Unremarkable. Abdominal wall: Right fat-containing inguinal hernia. Bones: Unremarkable. IMPRESSION: No evidence of acute abnormality to explain left-sided abdominal pain. Incidental findings as above. ACT 112: Negative or not required by law. Electronically signed by: Jim Villanueva M.D. 04/27/2021 1:52 PM
--- NOTE | 2021-04-27 15:37 | Discharge Summary ---
Date of Service April 27, 2021 Admission HPI Per Admitting Provider History obtained from patient and records. Medical history significant for hypertension, hyperlipidemia, DM2 insulin requiring, anxiety/mood disorder, medication noncompliance as per records, ongoing tobacco abuse. Patient has had intermittent substernal pain since age of 16. Not related to exertion or food intake. Spontaneous resolution after a few minutes. Very sporadic, years without actual chest pain. 2 days ago, patient noted recurrence substernal pain going to both hands and feet with some shortness of breath. No actual abdominal pain. Patient evaluated at the ER. Serum lipase at 07/31/1961. Symptoms attributed to stress as per ER provider note. Patient subsequently discharged. Recurrent symptoms this afternoon, 05/09. Patient given aspirin at the ER. Patient currently comfortable. Medical History as above Surgical History : Tympanostomy tube placement Family History : Alcoholism, heart disease, DM, stroke Personal/Social history : 1 pack daily, occasional EtOH intake, former Admission Exam Per Admitting Provider GENERAL: Comfortable, pleasant, looks older than stated age no respiratory distress SKIN: Normal color, warm HEENT: [place] palpebral conjunctivae, no ptosis, dry buccal mucosa NECK : Supple, no tenderness CHEST : CTA, left chest wall tenderness HEART : RRR, no obvious murmurs ABDOMEN: Some distention, nontender EXTREMITIES : No LE swelling/tenderness, no other conspicuous deformities noted NEUROLOGIC : Coherent, no facial asymmetry, no other gross focality Principal Diagnosis Chest pain Discharge Exam General: A&Ox3 HENT: NCAT, MMM, EOMI Eyes: PERRLA Neck: Supple, normal range of motion CVS: normal rate and rhythm Resp: b/l decrease breath sounds Abdomen: Soft, ND/NT Extremities: No c/c/e Neuro: face symmetric, no focal deficit apprecaited Skin: warm and dry, no rashes/lesions/errythema MSK: normal ROM, no joint swelling/erythema Discharge Data Allergies Allergy/AdvReac Type Severity Reaction Status Date / Time No Known Allergies Allergy Unverified 04/24/21 02:31 Consultations 04/25/21 19:18 ED Decision to Admit Stat Ordered Studies 04/25/21 17:01 CT abd pelvis IV con only Stat CT angio chest PE protocol Stat 04/27/21 11:27 CT abd pelvis IV con only Routine Diabetes Follow up Diabetes Follow-up Needed for HgbA1c >9% Hospital Course (1) Chest pain: Atypical; ACS ruled out Possibly musculoskeletal given reproducibility Rule out ACS given risk factors for ischemic heart disease hypertension, slight elevated hyperlipidemia, on statin Rx DM2 insulin requiring, suboptimal control as of recent hemoglobin A1c of 10.29 December 2020 anxiety/mood disorder, at baseline medication noncompliance as per records ongoing tobacco abuse Patient was admitted with atypical left-sided chest pain. Patient underwent cardiac stress test which was negative. Hemodynamically patient remained okay. On the day of discharge patient reported that now he is having left lower chest pain that is radiating to the left lower quadrant. He underwent repeat CT of the abdomen/pelvis that did not reveal any concerning findings CTA was also negative. His pain was likely musculoskeletal in nature. On the day of discharge patient was doing okay. He was discharged in stable condition. Text document was generated using [employer] voice recognition software. It may contain grammatical or spelling errors. Kindly contact undersigned for clarification of any documentation item in question. Total Time Total Time Spent Total Time Spent (In Minutes): 25 Discharge Plan Discharge Items Patient Disposition: Home - Self-Care Reason For Visit: CP Discharge Diagnosis: Noncardiac chest pain Activity: Resume your previous activity Non-emergency contact: Primary Care Provider Call non-emergency contact if: your symptoms worsen Follow-up/Referrals: Jayla Pedersen DO [Primary Care Provider] - (Date & Time 04/30/2021 11:10 AM Provider Jayla Pedersen DO Department [facility] ) Diet: Heart Healthy Addtl Attending Provider Instructions: Follow-up with your primary care physician as an outpatient. An appointment has been requested You can take [id number] Tylenol for pain control. Pending Studies at Discharge: No Stand-Alone Forms: [facility] [employer], Smoking Cessation Medications and DC Order Prescriptions: Continued atorvastatin 80 mg tablet 80 mg PO DAILY RF: 0 bupropion HCl 300 mg tablet extended release 24 hr 300 mg PO DAILY RF: 0 Invokana 300 mg tablet 300 mg PO DAILY RF: 0 Ozempic 1 mg/dose (2 mg/1.5 mL) pen injector 1 mg SUBCUT WK RF: 0 aspirin [Aspirin Low Dose] 81 mg Tablet,Delayed Release (Dr/Ec) 81 mg PO DAILY RF: 0 Lantus U-100 Insulin 100 unit/mL Solution 50 unit SUBCUT DAILY RF: 0 Changed lisinopril 2.5 mg tablet 5 mg PO DAILY Qty: 0 RF: 0 Discharge Orders: Discharge Order (Routine); Ordered 04/27/21 Ordered By: Pili Dunbar Admission Data Admit Date/Time: 04/25/21 20:40 Attending Provider: Pili Dunbar Admit Provider: Jose Viera Primary Care Provider: Jayla Pedersen Other Providers: Jose Viera Other Interventions: Discharge Summary Assessment (RN) Last Done: 04/26/21 13:14
== END 2021-04-27 17:05 | disposition home or self-care (01) ==
LOC: 2S 15:54 → ED 15:54 → 2S 21:52